=== PATIENT | female | born 1970 | race Caucasian/White ===

== ENCOUNTER → 2020-12-07 18:25 | Outpatient (CLI) | payer OTHER, SELFPAY ==
--- NOTE | 2020-12-07 18:27 | DI.MRI.S_ITS ---
PROCEDURE: MR LUMBAR SPINE WO CON INDICATIONS: Left L5 radiculopathy TECHNIQUE: Noncontrast sagittal T1 spin echo and T2 fast echo, sagittal STIR, axial T1 and T2 fast spin echo through the lumbar spine. In cases with scoliosis, additional coronal T2 fast spin echo may be performed. COMPARISON: [facility], [facility], MRI L-SPINE W/O CONTRAST, 09/18/2012, 15:58. FINDINGS: Image quality: Excellent. Alignment and Curvature: There is normal bony alignment. Bone Marrow: Marrow is of normal overall signal. No acute vertebral body compression fractures. Spinal Cord: Conus medullaris terminates at the L1 level. Visualized cord demonstrates normal signal and size. Paraspinous Soft Tissues: No paravertebral masses. T12-L1: Normal appearance. L1-L2: Normal appearance. L2-L3: Normal appearance except for mild facet osteoarthritis. L3-L4: Normal appearance except for mild to moderate facet osteoarthritis with only minimal foraminal stenosis. L4-L5: Degenerative disc disease is moderately severe with a large posterior disc protrusion at the midline, combining with bilateral facet hyperostosis and ligamentum flavum hypertrophy to produce concentric near severe spinal stenosis at this level. Foraminal stenosis is moderately severe. A free herniated disc fragment is not seen.. L5-S1: Degenerative facet osteoarthritis is moderate in severity contributing to presence of mild foraminal stenosis. There is a small posterior disc bulge at the midline, and facet osteoarthritis is slightly greater on the left than the right. IMPRESSION: Near severe spinal stenosis and foraminal stenosis at L 4-L5, with concentric spinal stenosis caused by facet hyperostosis, ligamentum flavum hypertrophy and a relatively large posterior midline disc bulge of the disc annulus at this level. The degree of degenerative changes at L5-S1 is appreciably less but significant, with potential for bilateral facet hyperostosis contributing to foraminal stenosis bilaterally at this level, left greater than right. Dictated by: Jayce Teran M.D. on 12/08/2020 at 15:38 Approved by: Jayce Teran M.D. on 12/08/2020 at 15:44
== END ==
PROVIDERS: PCP Physician Assistant Medical; Referring Provider Physician Assistant Medical; Visit Provider Physician Assistant Medical
DX: M51.16 Intervertebral disc disorders with radiculopathy, lumbar region (principal); M47.27 Other spondylosis with radiculopathy, lumbosacral region; M54.5 Low back pain; M48.061 Spinal stenosis, lumbar region without neurogenic claudication; M48.07 Spinal stenosis, lumbosacral region
CPT/HCPCS: 72148

== ENCOUNTER → 2021-01-19 08:24 | Outpatient (CLI) | payer OTHER, SELFPAY ==
[2021-01-19 14:46] LABS: COVID19 -Nasal RAPID Negative (Negative)
== END ==
PROVIDERS: PCP Physician Assistant Medical; Visit Provider Physical Medicine & Rehabilitation
DX: Z20.822 Contact with and (suspected) exposure to COVID-19 (principal)
CPT/HCPCS: 87635; C9803

== ENCOUNTER 2021-01-21 13:47 | Outpatient (CLI) | payer OTHER, SELFPAY ==
[2021-01-21] VITALS (8 sets, daily range): BP systolic 114–130; BP diastolic 61–76; PULSE 68–85; RESP 13–20; TEMP 37.2; O2SAT 97–99
--- NOTE | 2021-01-21 13:48 | DI.RAD.S_ITS ---
PROCEDURE: PAIN L/S TRANSFORAM INJECT DEISI COMPARISON: None. INDICATIONS: SPONDYLOSIS FINDINGS: Fluoroscopic spot filming was performed to verify placement of spinal needles at the L4-L5 level(s), as labeled on the films. Appropriate location(s) of the needle tip(s) was confirmed by injection of iodinated contrast. Dictated by: Delvin Grace M.D. on 01/21/2021 at 14:52 Approved by: Delvin Grace M.D. on 01/21/2021 at 14:53
[2021-01-21] MEDS: fentaNYL 100 MCG/2 ML INJ 50 MCG IV (14:16)
[2021-01-21] MEDS: MIDAZOLAM 5 MG/5 ML VIAL IV (14:19)
[2021-01-21] MEDS: BETAMETHASONE 30 MG/5 ML MDV 12 MG INJ (14:20)
[2021-01-21] MEDS: DEXAMETHASONE 10 MG/ML VIAL 20 MG INJ (14:20)
[2021-01-21] MEDS: BUPIVACAINE 0.25% (PF) VIAL 2 ML INJ (14:20)
[2021-01-21] MEDS: IOPAMIDOL 15 ML VIAL 3 ML INJ (14:20)
--- NOTE | 2021-01-21 14:35 | PM.PROC.IR.1 ---
Date/Time/Diagnoses Date of procedure: 01/21/21 Time of procedure: 14:35 Pre-procedure diagnosis: 1. FORAMINAL STENOSIS WITH LE SYMPTOMS Procedure Notes Procedure: 1. FLUOROSCOPICALLY GUIDED CONTRAST CONTROLLED TRANSFORAMINAL EPIDURAL STEROID INJECTION - BILATERAL L4/5 TFESI Indications: Gloria is referred by MARLA Lindsey for treatment of Foraminal Stenosis with bilateral LE Symptoms Physician: Carlos Eduardo Espinoza Total Fluoroscopy time (seconds): 15 Total sedation minutes: 15 Complications: none Procedure in detail & Post-procedure care: FINDINGS Foraminal Nerve Root Compression secondary to disc disease and facet hypertrophy DESCRIPTION OF PROCEDURE Following review of allergy and review of potential side effects and complications, including, but not necessarily limited to, infection, allergic reaction, local tissue breakdown, stroke, temporary or permanent nerve injury, paralysis, and possible , the patient indicated that the patient understood and agreed to proceed. An informed consent document was signed by the patient, witnessed by a nurse, and placed in the patient's chart. Additionally, other treatment options including medications, modalities, and physical therapy were reviewed with the patient. After review of previous anaesthesic history and IV conscious sedation the patient was deemed safe to proceed with today?s procedure with IV conscious sedation as ASA class II designation. Safety time-out was performed to confirm patient ID, procedure to be performed and site of procedure. IV sedation was accomplished with a combination of 3mg of Versed and 50mcg of Fentanyl was administered by the RN after DO order, titrated to patient comfort during the course of the procedure while the patient remained responsive to all verbal commands In the prone position following sterile prep and drape of the lumbar region, the right L4/5 posterior neuroforamen was identified fluoroscopically. The skin was anesthetized via a 25-gauge 1.5-inch needle with 1% lidocaine solution. At this point, a 25-gauge 3.5-inch spinal needle was atraumatically introduced and advanced under fluoroscopic guidance through the posterior right L4/5 neuroforamen to approximately the anterior aspect of the canal. Depth was confirmed on lateral view. Following negative aspiration, injection of approximately 1.5cc of Isovue 200 under live fluoroscopy in the AP view confirmed excellent flow along the nerve root, into the epidural space without vascular or intrathecal uptake observed Radiological data, including multiple fluoroscopic views of the lumbosacral spine, reveal a spinal needle at the right L4/5 posterior neuroforamen. Subsequent views show flow of contrast material flowing superiorly and inferiorly along the nerve root confirming epidural flow. Subsequently, a test dose of 1.5cc of 1% lidocaine solution was administered and patient was observed for two minutes for signs or symptoms of complications, including abdominal pain, shortness of breath, bilateral upper or lower extremity weakness, nausea and vomiting, prior to steroid injection. At this point, a total of 3cc or 20mg of dexamethasone and 6mg betamethasone was injected without incident. Attention was then refocused to the left L4/5 level where the identical procedure was replicated. The procedure tolerated the procedure well without signs or symptoms of complications prior to transfer to the recovery area continued monitoring without incident. The patient was then transferred to the recovery area where they were observed for an appropriate time after the injection. The patient reported a VAS score of 7 prior to the procedure and a post-procedure VAS of 0. POST OP INSTRUCTIONS The patient was provided a Pain Log to continue to record their response to the target-specific procedure prior to follow-up visit with their referring physician. Additionally, specific post-injection care instructions and a contact number to our office were provided if concerns arise regarding possible complications associated with the procedure are suspected.
== END 2021-01-21 14:53 | disposition home or self-care (01) ==
LOC: RAD 13:48
PROVIDERS: PCP Physician Assistant Medical; Referring Provider Physical Medicine & Rehabilitation; Visit Provider Physical Medicine & Rehabilitation
DX: M48.061 Spinal stenosis, lumbar region without neurogenic claudication (principal); M51.16 Intervertebral disc disorders with radiculopathy, lumbar region
CPT/HCPCS: 64483; 99152; J0702; J1100; J2250; J3010

== ENCOUNTER → 2021-04-27 09:34 | Outpatient (CLI) | payer OTHER, SELFPAY ==
[2021-04-27 11:48] LABS: COVID19 -Nasal RAPID Negative (Negative)
== END ==
PROVIDERS: PCP Physician Assistant Medical; Visit Provider Physical Medicine & Rehabilitation
DX: Z20.822 Contact with and (suspected) exposure to COVID-19 (principal)
CPT/HCPCS: 87635; C9803

== ENCOUNTER 2021-04-29 14:08 | Outpatient (CLI) | payer OTHER, SELFPAY ==
[2021-04-29] VITALS (8 sets, daily range): BP systolic 119–133; BP diastolic 62–82; PULSE 74–85; RESP 17–22; TEMP 36.6; O2SAT 98–100
--- NOTE | 2021-04-29 14:09 | DI.RAD.S_ITS ---
PROCEDURE: PAIN L/S FACET INJ/BLK 1ST DEISI COMPARISON: [facility], , PAIN L/S TRANSFORAM INJECT DEISI, 01/21/2021, 14:22. INDICATIONS: SPONDYLOSIS FINDINGS: Fluoroscopic spot filming was performed to verify placement of spinal needles on both sides at the L4-L5 level and L5-S1 level, as labeled on the films. Appropriate location of the needle tips was confirmed by injection of iodinated contrast. IMPRESSION: Intraprocedural examination within normal limits. Dictated by: Nitin Bautista M.D. on 04/29/2021 at 15:33 Approved by: Nitin Bautista M.D. on 04/29/2021 at 15:33
[2021-04-29] MEDS: fentaNYL 100 MCG/2 ML INJ 50 MCG IV (14:59)
[2021-04-29] MEDS: MIDAZOLAM 5 MG/5 ML VIAL IV (14:59)
[2021-04-29] MEDS: IOPAMIDOL 15 ML VIAL 3 ML INJ (15:02)
[2021-04-29] MEDS: LIDOCAINE 1% 20 ML 10 ML INJ (15:03)
[2021-04-29] MEDS: BUPIVACAINE 0.5% (PF) VIAL 5 ML INJ (15:03)
[2021-04-29] MEDS: BETAMETHASONE 30 MG/5 ML MDV 12 MG INJ (15:04)
--- NOTE | 2021-04-29 15:19 | P.PCN_ITS ---
Date/Time/Diagnoses Date of procedure: 04/29/21 Time of procedure: 15:19 Pre-procedure diagnosis: 1. FACET ARTHROPATHY 2. AXIAL LBP 3. MULTILEVEL DDD Post-procedure diagnosis: same Procedure Notes Procedure: 1. FLUOROSCOPICALLY GUIDED CONTRAST CONTROLLED FACET JOINT INJECTIONS BILATERAL L4/5, L5/S1 Indications: Gloria is referred by MARLA Lindsey for treatment of Axial LBP Physician: Carlos Eduardo Espinoza Total Fluoroscopy time (seconds): 15 Total sedation minutes: 10 Complications: none Procedure in detail & Post-procedure care: FINDINGS Multilevel Facet Arthropathy with Clinically significant axial LBP DESCRIPTION OF PROCEDURE Fluoroscopically guided, contrast-controlled bilateral L4/5, L5/S1 facet joint injections. Following review of allergy and review of potential side effects and complications, including, but not necessarily limited to, infection, allergic reaction, local tissue breakdown, stroke, temporary or permanent nerve injury, paralysis, and possible , the patient indicated that the patient understood and agreed to proceed. An informed consent document was signed by the patient, witnessed by a nurse, and placed in the patient's chart. Additionally, other treatment options including medications, modalities, and physical therapy were reviewed with the patient. After review of previous anaesthesic history and IV conscious sedation the patient was deemed safe to proceed with today?s procedure with IV conscious sedation as ASA class II designation. Safety time-out was performed to confirm patient ID, procedure to be performed and site of procedure. IV sedation was accomplished with a combination of 3mg of Versed and 50mcg of Fentanyl was administered by the RN after DO order, titrated to patient comfort during the course of the procedure while the patient remained responsive to all verbal commands In the prone position, following sterile prep and drape of the lumbar region, the posterior aspect of the L4/5, L5/S1 facet joints were identified fluoroscopically. The skin was anesthetized via a 25-gauge 1.5inch needle with 1% lidocaine solution into the corresponding facet joints. At this point, a 22- gauge 3.5-inch spinal needle was atraumatically introduced and advanced under fluoroscopic guidance into the corresponding facet joints. Following negative aspiration, injections of approximately 0.2cc of Isovue 200 confirmed interartic ular placement without vascular uptake. The identical procedure was then performed at the L4/5, L5/S1 facet joints on the left. Radiological data, including multiple fluoroscopic views of the lumbosacral spine, reveal a spinal needle at the L4/5, L5/S1 facet joints bilaterally. Subsequent views show flow of contrast material both superiorly and inferiorly within the joint space without vascular or intrathecal uptake. At this point, a total of 0.5cc including a mixture of 0.25cc Marcaine and 0.25cc betamethasone was injected without complication into each of the corresponding facet joints. The patient tolerated the procedure well without signs or symptoms of complications prior to transfer to the recovery area continued monitoring without incident. The patient was then transferred to the recovery area where they were observed for an appropriate period of time after the injection. The patient reported a VAS score of 7 prior to the procedure and a post- procedure VAS of 0. POST OP INSTRUCTIONS The patient was provided a Pain Log to continue to record their response to the target-specific procedure prior to follow-up visit with their referring physician. Additionally, specific post-injection care instructions and a contact number to our office were provided if concerns arise regarding possible complications associated with the procedure are suspected.
== END 2021-04-29 15:35 | disposition home or self-care (01) ==
LOC: RAD 14:08
PROVIDERS: PCP Physician Assistant Medical; Referring Provider Physical Medicine & Rehabilitation; Visit Provider Physical Medicine & Rehabilitation
DX: M47.816 Spondylosis without myelopathy or radiculopathy, lumbar region (principal); M47.817 Spondylosis without myelopathy or radiculopathy, lumbosacral region; M51.36 Other intervertebral disc degeneration, lumbar region; M51.37 Other intervertebral disc degeneration, lumbosacral region; M54.59 Other low back pain
CPT/HCPCS: 64493; 64494; 99152; J0702; J2250; J3010

== ENCOUNTER → 2021-08-03 13:13 | Outpatient (CLI) | payer OTHER, SELFPAY ==
[2021-08-03 14:56] LABS: COVID19 -Nasal RAPID Negative (Negative)
== END ==
PROVIDERS: PCP Physician Assistant Medical; Visit Provider Physical Medicine & Rehabilitation
DX: Z20.822 Contact with and (suspected) exposure to COVID-19 (principal)
CPT/HCPCS: 87635; C9803

== ENCOUNTER 2021-08-05 12:19 | Outpatient (CLI) | payer OTHER, SELFPAY ==
[2021-08-05] VITALS (7 sets, daily range): BP systolic 123–142; BP diastolic 69–82; PULSE 74–86; RESP 13–125; TEMP 36.7; O2SAT 99–100
--- NOTE | 2021-08-05 12:24 | DI.RAD.S_ITS ---
PROCEDURE: PAIN L/S FACET INJ/BLK 1ST DEISI COMPARISON: [facility], , PAIN L/S FACET INJ/BLK 1ST DEISI, 04/29/2021, 15:00. INDICATIONS: SPONDYLOSIS FINDINGS: Needle placement on the bilateral L4 through S1 levels as labeled on the images. A small amount of contrast was injected to in confirm placement. IMPRESSION: Right L4 through S1 needle placement. Dictated by: Taiwo Angulo M.D. on 08/05/2021 at 13:49 Approved by: Taiwo Angulo M.D. on 08/05/2021 at 13:50
[2021-08-05] MEDS: fentaNYL 100 MCG/2 ML INJ 50 MCG IV (13:09)
[2021-08-05] MEDS: MIDAZOLAM 5 MG/5 ML VIAL IV (13:09)
[2021-08-05] MEDS: LIDOCAINE 1% 20 ML (13:13)
[2021-08-05] MEDS: IOPAMIDOL 15 ML VIAL 3 ML INJ (13:13)
[2021-08-05] MEDS: BUPIVACAINE 0.5% (PF) VIAL 5 ML INJ (13:13)
--- NOTE | 2021-08-05 13:27 | PM.PROC.IR.1 ---
Date/Time/Diagnoses Date of procedure: 08/05/21 Time of procedure: 13:27 Pre-procedure diagnosis: 1. FACET ARTHROPATHY This procedure is found to meet the Governor's proclamation 20-24.2 regarding non urgent procedures. This patient meets multiple criteria for the procedure including continuing or worsening of significant or severe pain, combined with further deterioration of the patient's condition or overall health as well as delay in treatment would be expected to result in less positive ultimate medical outcome. Therefore the decision to perform the procedure in an outpatient hospital setting is found to be in accordance with guidelines of the proclamation. Post-procedure diagnosis: same Procedure Notes Procedure: 1. BILATERAL- L4, L5 and S1 DIAGNOSTIC MB BLOCKS with LA Anesthetic Indications: Gloria is referred by PAC Young for treatment of Bilateral Axial LBP. Physician: Carlos Eduardo Espinoza Total Fluoroscopy time (seconds): 10 Total sedation minutes: 13 Complications: none Procedure in detail & Post-procedure care: DESCRIPTION OF PROCEDURE Fluoroscopically guided, contrast-controlled bilateral L4, L5 and S1 medial branch blocks with 0.5cc of 0.5% Marcaine. Following review of allergy and review of potential side effects and complications, including, but not necessarily limited to, infection, allergic reaction, local tissue breakdown, nerve injury, paralysis, stroke and possible , the patient indicated that the patient understood and agreed to proceed. An informed consent document was signed by the patient, witnessed by a nurse, and placed in the patient's chart. After review of previous anaesthesic history and IV conscious sedation the patient was deemed safe to proceed with today's procedure with IV conscious sedation as ASA class II designation. Safety time-out was performed to confirm patient ID, procedure to be performed and site of procedure. IV sedation was accomplished with a combination of 3mg of Versed and 50mcg of Fentanyl was administered by the RN after DO order, titrated to patient comfort during the course of the procedure while the patient remained responsive to all verbal commands In the prone position, following sterile prep and drape of the lumbar region, the right L4, L5 and S1 anatomical location of the medial branch of the dorsal ramus was identified fluoroscopically. Subsequently an anesthetic skin wheal using 1% lidocaine solution was initiated at each of the anatomical spots. Subsequently then a 22-gauge 3.5-inch spinal needle was atraumatically introduced and advanced under fluoroscopic guidance at each of the corresponding sites at the right L4, L5 and S1 MB. After negative aspiration, 0.2cc of Isovue 200 was injected, confirming placement without vascular or intrathecal uptake. Subsequently then 0.5cc of 0.5% Marcaine solution was injected at each of the corresponding sites at the right L4, L5 and S1 medial branch locations. The identical procedure was replicated on the left. The patient tolerated the procedure well without signs or symptoms of complications prior to transfer to the recovery area continued monitoring without incident. Post-procedure, the patient was monitored initiating provocative activities to measure the amount of relief from block of the facetogenic pain. The patient reported a VAS of 7 prior to the procedure and a post-procedure VAS of 1. It has been a pleasure to assist in the diagnostic and therapeutic care of your patient. POST OP INSTRUCTIONS The patient was provided with a Pain Log to complete over the next several hours and subsequent days prior to the patient's follow up with the ordering physician. 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 The patient is aware, was provided, once again, with a Pain Log and will follow up with the referring physician for review and clinical correlation
== END 2021-08-05 13:46 | disposition home or self-care (01) ==
PROVIDERS: PCP Physician Assistant Medical; Referring Provider Physical Medicine & Rehabilitation; Visit Provider Physical Medicine & Rehabilitation
DX: M47.816 Spondylosis without myelopathy or radiculopathy, lumbar region (principal); M47.817 Spondylosis without myelopathy or radiculopathy, lumbosacral region
CPT/HCPCS: 64493; 64494; 99152; J2250; J3010

== ENCOUNTER → 2021-11-09 13:20 | Outpatient (CLI) | payer OTHER, SELFPAY ==
[2021-11-09 14:44] LABS: COVID19 -Nasal RAPID Negative (Negative)
== END ==
PROVIDERS: PCP Physician Assistant Medical; Visit Provider Physical Medicine & Rehabilitation
DX: Z20.822 Contact with and (suspected) exposure to COVID-19 (principal)
CPT/HCPCS: 87635; C9803

== ENCOUNTER 2021-11-11 10:33 | Outpatient (CLI) | payer OTHER, SELFPAY ==
[2021-11-11] VITALS (11 sets, daily range): BP systolic 121–144; BP diastolic 75–84; PULSE 68–84; RESP 17–29; TEMP 36.7; O2SAT 99–100
--- NOTE | 2021-11-11 10:36 | DI.RAD.S_ITS ---
PROCEDURE: PAIN L/S MED/LAT N RFA BILAT INDICATIONS: SPONDLYLOSIS COMPARISON: [facility], XA, PAIN L/S FACET INJ/BLK 1ST DEISI, 08/05/2021, 14:14. [facility], XA, PAIN L/S FACET INJ/BLK 1ST DEISI, 04/29/2021, 15:00. [facility], XA, PAIN L/S TRANSFORAM INJECT DEISI, 01/21/2021, 14:22. FINDINGS: Fluoroscopic spot filming was performed to verify placement of spinal needles on both sides at the L4, L5, and S1 levels, as labeled on the films. IMPRESSION: Images during rhizotomy within normal limits. Dictated by: Nitin Bautista M.D. on 11/11/2021 at 11:50 Approved by: Nitin Bautista M.D. on 11/11/2021 at 11:51
[2021-11-11] MEDS: MIDAZOLAM 2 MG/2 ML VIAL IV ×2 (11:42→11:46)
[2021-11-11] MEDS: LIDOCAINE 1% 20 ML (11:46)
[2021-11-11] MEDS: BUPIVACAINE 0.5% (PF) VIAL 5 ML INJ (11:47)
[2021-11-11] MEDS: MIDAZOLAM 2 MG/2 ML VIAL 4 MG (11:58)
[2021-11-11] MEDS: fentaNYL 100 MCG/2 ML INJ (12:00)
--- NOTE | 2021-11-11 12:20 | P.PCN_ITS ---
Date/Time/Diagnoses Date of procedure: 11/11/21 Time of procedure: 12:20 Pre-procedure diagnosis: 1. RECALCITRANT FACET ARTHROPATHY Post-procedure diagnosis: same Procedure Notes Procedure: 1. BILATERAL L4 AND L5 MEDIAL BRANCH RADIOFREQUENCY NEUROTOMY AND S1 DORSAL RAMUS BRANCH RADIOFREQUENCY NEUROTOMY Indications: Gloria is referred by MARLA Lindsey for treatment of facet arthropathy. Physician: Carlos Eduardo Espinoza Total Fluoroscopy time (seconds): 16 Total sedation minutes: 30 Complications: none Procedure in detail & Post-procedure care: DESCRIPTION OF PROCEDURE Bilateral L4 and L5 medial branch radiofrequency neurotomy and bilateral S1 dorsal ramus radiofrequency neurotomy under fluoroscopy with conscious sedation. The patient is well known to this clinic having undergone previous facet injections with good but temporary relief. The patient has experienced appropriate, concordant relief with previous facet and median branch blocks but the patient's pain has been recalcitrant to further conservative measures. Therefore, based upon the patient's relief and persistent symptoms, the patient is considered an appropriate candidate for facet rhizotomy. All of the patient's questions regarding the risks versus benefits of the procedure, including, but not limited to, bleeding, infection, temporary as well as lasting nerve injury, paralysis, stroke, and , as well treatment alternatives were answered to satisfaction. After obtaining informed consent, denial of pertinent drug allergies, as well as being made aware of the potential risks of bleeding, infection, spinal cord trauma, paralysis, temporary and permanent nerve damage, seizure, stroke, and possible , the patient was brought to the fluoroscopy suite and positioned prone on the fluoroscopy table. The lumbar region was prepped with Betadine and covered with a fenestrated drape in the usual sterile fashion. Appropriate monitors applied including pulse oximeter, pulse, and blood pressure for regular monitoring throughout the procedure. After review of previous anaesthesic history and IV conscious sedation the patient was deemed safe to proceed with today's procedure with IV conscious sedation as ASA class II designation. Safety time-out was performed to confirm patient ID, procedure to be performed and site of procedure. IV sedation was accomplished with a combination of 4mg of Versed and 50mcg of Fentanyl administered by the RN after DO order, titrated to patient comfort during the course of the procedure while the patient remained responsive to all verbal commands. After local infiltration using 1% lidocaine, under fluoroscopic guidance, a 10- cm RF insulated needle with a 10-mm active tip was positioned parallel to the junction of the right sacral ala and the superior articulating process where the S1 dorsal ramus resides. Needle placement was confirmed with motor stimulation of .5v on the right which produced local stimulation without radicular component. The stimulation was then increased to 2v with, once again, only local multifidus stimulation without radicular component. The needle was then removed and the identical procedure was performed along the length of the right L5 medial branch with motor stimulation at .7v on the right. The identical procedure was once again performed along the length of the right L4 medial branch with motor stimulation of .5v on the right. The medial branches were then anesthetised with 0.5% Marcaine. This was then followed by two discreet lesions performed at 80 degrees Celsius for 90 seconds each. The identical procedure was repeated on the left. The patient tolerated the procedure well without signs or symptoms of complications prior to transfer to the recovery area continued monitoring without incident. The patient was then transferred to the recovery area where they were observed for an appropriate period of time after the injection. The patient reported a VAS score of 8 prior to the procedure and a post-procedure VAS of 1. POST OP INSTRUCTIONS The patient was provided a Pain Log to continue to record the patient's response to the target-specific procedure prior to the patient's follow-up visit with the referring physician. Additionally, specific post-injection care instructions and a contact number to our office were provided if concerns arise regarding possible complications associated with the procedure are suspected.
== END 2021-11-11 12:35 | disposition home or self-care (01) ==
PROVIDERS: PCP Physician Assistant Medical; Referring Provider Physical Medicine & Rehabilitation; Visit Provider Physical Medicine & Rehabilitation
DX: M47.816 Spondylosis without myelopathy or radiculopathy, lumbar region (principal); M47.817 Spondylosis without myelopathy or radiculopathy, lumbosacral region
CPT/HCPCS: 64635; 64636; 99152; 99153; J2250; J3010

== ENCOUNTER 2022-04-14 09:42 | Outpatient (CLI) | payer OTHER, SELFPAY ==
[2022-04-14] VITALS (8 sets, daily range): BP systolic 111–153; BP diastolic 67–74; PULSE 76–94; RESP 16–20; TEMP 36.7; O2SAT 95–100
--- NOTE | 2022-04-14 09:43 | DI.RAD.S_ITS ---
PROCEDURE: PAIN L INTERLAMINAR/CAUDAL INJ INDICATIONS: SPONDYLOSIS COMPARISON: [facility], , PAIN L/S MED/LAT N RFA BILAT, 11/11/2021, 11:47. FINDINGS: Fluoroscopic spot filming was performed to verify placement of a spinal needle at the L4-L5 level, as labeled on the films. Appropriate location of the needle tip was confirmed by injection of iodinated contrast. IMPRESSION: Intraprocedural examination within normal limits. Dictated by: Nitin Bautista M.D. on 04/14/2022 at 12:33 Approved by: Nitin Bautista M.D. on 04/14/2022 at 12:33
[2022-04-14] MEDS: MIDAZOLAM 2 MG/2 ML VIAL 4 MG IV (10:25)
[2022-04-14] MEDS: BUPIVACAINE 0.25% (PF) VIAL 5 ML SUBCUT (10:31)
[2022-04-14] MEDS: IOPAMIDOL 15 ML VIAL 3 ML INJ (10:31)
[2022-04-14] MEDS: BETAMETHASONE 30 MG/5 ML MDV 6 MG INJ (10:32)
[2022-04-14] MEDS: DEXAMETHASONE 10 MG/ML VIAL 20 MG INJ (10:33)
--- NOTE | 2022-04-14 10:39 | P.PCN_ITS ---
Date/Time/Diagnoses Date of procedure: 04/14/22 Time of procedure: 10:39 Pre-procedure diagnosis: 1. HNP WITH RADICULAR FEATURES, 2. MULTILEVEL CENTRAL STENOSIS, Post-procedure diagnosis: same Procedure Notes Procedure: 1. FLUOROSCOPICALLY GUIDED CONTRAST CONTROLLED INTERLAMINAR EPIDURAL STEROID INJECTION - L4/5 Indications: Gloria is referred by PAC César for treatment of Bilateral Foraminal Stenosis R>L LE symptoms. Physician: Carlos Eduardo Espinoza Total Fluoroscopy time (seconds): 4 Total sedation minutes: 11 Complications: none Procedure in detail & Post-procedure care: FINDINGS Multilevel Central Spinal Stenosis with Nerve Root Compression DESCRIPTION OF PROCEDURE Fluoroscopically guided, contrast-controlled L4/5 translaminar epidural steroid injection. Following review of allergy and review of potential side effects and complications, including, but not necessarily limited to, infection, allergic reaction, local tissue breakdown, temporary as well as permanent nerve injury, paralysis, stroke and possible , the patient indicated that the patient understood and agreed to proceed. An informed consent document was signed by the patient, witnessed by a nurse, and placed in the patient's chart. Additionally, other treatment options including modalities, medications, and physical therapy were reviewed with the patient. After review of previous anaesthesic history and IV conscious sedation the patient was deemed safe to proceed with today?s procedure with IV conscious sedation as ASA class II designation. Safety time-out was performed to confirm patient ID, procedure to be performed and site of procedure. IV sedation was accomplished with a combination of 2mg of Versed was administered by the RN after DO order, titrated to patient comfort during the course of the procedure while the patient remained responsive to all verbal commands In the prone position, following sterile prep and drape of the lumbar region, the L4/5 translaminar space was identified fluoroscopically. The skin was anesthetized via a 25-gauge, 1.5inch needle with 1% lidocaine solution. At this point, a 22-gauge short bevel spinal needle was atraumatically introduced and ad vanced under fluoroscopic guidance into the region of the L4/5 translaminar space. Depth was confirmed on lateral view. Radiological data, including multiple fluoroscopic views of the lumbar spine, reveal a spinal needle at the L4/5 translaminar space. Lateral views then show placement of the needle in the epidural space. Subsequent views show contrast material flowing superiorly and inferiorly in the epidural space. No vascular or intrathecal uptake is observed. At this point, using loss of resistance technique with saline and air, the epidural space was entered. This was confirmed following negative aspiration with injection of approximately 1.5cc of Isovue 200, showing excellent epidural flow without vascular or intrathecal uptake. At this point, 1cc of 1% lidocaine solution combined with 3cc or 20mg of dexamethasone and 6mg betamethasone was injected without incident. The patient tolerated the procedure well without signs or symptoms of complications prior to transfer to the recovery area continued monitoring without incident. The patient was then transferred to the recovery area where they were observed for an appropriate period of time after the injection. The patient reported a VAS score of 6 prior to the procedure and a post- procedure VAS of 0. POST OP INSTRUCTIONS The patient was provided a Pain Log to continue to record their response to the target-specific procedure prior to follow-up visit with their referring physician. Additionally, specific post-injection care instructions and a contact number to our office were provided if concerns arise regarding possible complications associated with the procedure are suspected.
== END 2022-04-14 11:00 | disposition home or self-care (01) ==
PROVIDERS: PCP Physician Assistant Medical; Referring Provider Physical Medicine & Rehabilitation; Visit Provider Physical Medicine & Rehabilitation
DX: M51.16 Intervertebral disc disorders with radiculopathy, lumbar region (principal); M48.061 Spinal stenosis, lumbar region without neurogenic claudication
CPT/HCPCS: 62323; 99152; J0702; J1100; J2250; J3490